=== PATIENT | female | born 1975 | race African-American/Black ===

== ENCOUNTER 2017-06-03 21:41 | Emergency (ER) | payer MEDICAID, OTHER ==
[~2017-06-03] VITALS: Ht 149.9 cm; Wt 79.0 kg
[~2017-06-03 21:41] MED LIST: TYLENOL #3
[2017-06-03] MEDS ORDERED: METHYLPREDNISOLONE SOD SUCC 125 MG/2 ML VIAL IM STA (22:22)
[2017-06-03] MEDS ORDERED: ALBUTEROL (0.083%) 2.5MG/3ML NEB HHN STA ×2 (22:22→23:33)
[2017-06-03] MEDS ORDERED: IPRATROPIUM BROMIDE (0.02%) 0.5MG/2.5ML NEB HHN STA ×2 (22:22→23:33)
[2017-06-04 00:14] VITALS: BP 122/71
[2017-06-04] MEDS ORDERED: IPRATROPIUM/ALBUTEROL 0.5-3(2.5)MG/3ML NEB ONE (00:18)
[2017-06-04] MEDS ORDERED: GUAIFENESIN 200MG/10ML SUGAR FREE UDC PO ONE (01:30)
[2017-06-04] MEDS ORDERED: GUAIFENESIN 200MG/10ML SUGAR FREE UDC PO NR (01:45)
== END 2017-06-04 01:55 | disposition home or self-care (01) ==
LOC: ER 21:41
DX: J45.901 Unspecified asthma with (acute) exacerbation (principal); J06.9 Acute upper respiratory infection, unspecified; F12.10 Cannabis abuse, uncomplicated
CPT/HCPCS: 71045; 87070; 87430; 87804; 94640; 96372; 99285; J2930; J7611; J7620; Z7610; 93005

== ENCOUNTER 2018-11-30 09:41 | Inpatient (IN) | payer OTHER ==
[~2018-11-30] VITALS: Ht 149.9 cm; Wt 93.4 kg
[2018-11-30] MEDS ORDERED: IPRATROPIUM BROMIDE (0.02%) 0.5MG/2.5ML NEB HHN STA (10:09)
[2018-11-30] MEDS ORDERED: MAGNESIUM 2 G PREMIX 50 ML IV STA (10:09)
[2018-11-30] MEDS ORDERED: ALBUTEROL (0.083%) 2.5MG/3ML NEB HHN STA (10:09)
[2018-11-30] MEDS ORDERED: SODIUM CHLORIDE 0.9% 1,000 ML IV ONE (10:09)
[2018-11-30] MEDS ORDERED: METHYLPREDNISOLONE SOD SUCC 125 MG/2 ML VIAL IV STA (10:09)
[2018-11-30] MEDS ORDERED: IPRATROPIUM/ALBUTEROL 0.5-3(2.5)MG/3ML NEB ONE (10:15)
[2018-11-30] MEDS ORDERED: LORAZEPAM 2MG/ML CPJ IV ONE (10:45)
[2018-11-30 10:46] LABS: BASOPHILS % 0.7 % (0.0-2.0); EOSINOPHILS % 1.9 % (0.0-5.0); HEMATOCRIT. 40.2 % (36.0-48.0); HEMOGLOBIN. 13.5 g/dL (12.0-16.0); LYMPHOCYTES % 31.3 % (20.0-50.0); MEAN CORPUSCULAR HEMOGLOBIN 30.8 pg (28.0-32.0); MEAN CORPUSCULAR VOLUME 91.5 fL (81.0-99.0); MONOCYTES % 14.2 % (2.0-8.0); NEUTROPHILS % 51.9 % (40.0-76.0); PLATELET 303 x1000/uL (130-400); RED BLOOD CELL COUNT 4.39 mill/uL (4.2-5.4); RED CELL DISTRIBUTION WIDTH 14.4 % (11.6-14.6)
[2018-11-30 10:52] LABS: CHLORIDE 109 mEq/L (98-107)
[2018-11-30 10:58] LABS: HCG SCREEN NEGATIVE
[2018-11-30] MEDS ORDERED: CLONIDINE 0.1MG TABLET PO PRN (11:15)
[2018-11-30] MEDS ORDERED: ACETAMINOPHEN 325MG TABLET PO PRN (11:15)
[2018-11-30] MEDS ORDERED: ONDANSETRON HCL 4MG/2ML INJ IV PRN (11:15)
[2018-11-30] MEDS ORDERED: MAGNESIUM/ALUMINUM HYDROXIDE/SIMETHICONE 30ML UDC PO PRN (11:15)
[2018-11-30] MEDS ORDERED: DIPHENHYDRAMINE 50MG/ML VIAL IV PRN (11:15)
[2018-11-30] MEDS ORDERED: IPRATROPIUM/ALBUTEROL 0.5-3(2.5)MG/3ML NEB HHN PRN (11:15)
[2018-11-30] MEDS ORDERED: DOCUSATE SODIUM 100MG CAPSULE PO PRN (11:15)
[2018-11-30 12:08] LABS: PHOSPHORUS 3.1 mg/dL (2.5-4.9)
[2018-11-30 13:00] VITALS: BP 141/77
[2018-11-30] MEDS ORDERED: PRED-276 MT (13:33)
[2018-11-30] MEDS ORDERED: ALBU05 NEB (13:33)
[2018-11-30] MEDS: GUAIFENESIN 200MG/10ML SUGAR FREE UDC PO PRN (14:19)
[2018-11-30] MEDS: ENOXAPARIN 40MG/0.4ML SYR SUBCUT SCH (14:19)
[2018-11-30] MEDS: HYDROCODONE/ACETAMINOPHEN 5/325MG TABLET PO PRN (14:21)
[2018-11-30 15:30] VITALS: BP 127/77
[2018-11-30] MEDS: METHYLPREDNISOLONE SOD SUCC 40 MG/ML VIAL IV SCH ×2 (15:59→22:15)
[2018-11-30] MEDS: LORATADINE 10MG TABLET PO SCH (16:01)
[2018-11-30] MEDS: MONTELUKAST SODIUM 10MG TABLET PO SCH (18:30)
[2018-11-30 20:00] VITALS: BP 121/61
[2018-11-30] MEDS: MORPHINE SULFATE 2 MG/ML CPJ (NOT FOR IM USE) IV PRN (20:04)
[2018-11-30] MEDS: GUAIFENESIN 600MG ER TABLET PO SCH (22:16)
[2018-11-30] MEDS: FAMOTIDINE 20MG/2ML VIAL IV SCH (22:16)
[2018-12-01] VITALS: BP 118/64
[2018-12-01] MEDS: IPRATROPIUM/ALBUTEROL 0.5-3(2.5)MG/3ML NEB HHN SCH ×4 (01:06→21:34)
[2018-12-01 04:00] VITALS: BP 122/59
[2018-12-01] MEDS: METHYLPREDNISOLONE SOD SUCC 40 MG/ML VIAL IV SCH ×3 (05:27→21:03)
[2018-12-01 08:30] VITALS: BP 117/71
[2018-12-01] MEDS: ENOXAPARIN 40MG/0.4ML SYR SUBCUT SCH ×2 (09:00→10:16)
[2018-12-01] MEDS: FAMOTIDINE 20MG/2ML VIAL IV SCH ×3 (09:00→21:03)
[2018-12-01] MEDS: LORATADINE 10MG TABLET PO SCH (09:19)
[2018-12-01] MEDS: GUAIFENESIN 600MG ER TABLET PO SCH ×2 (09:19→21:03)
[2018-12-01] MEDS: MORPHINE SULFATE 2 MG/ML CPJ (NOT FOR IM USE) IV PRN ×2 (09:20→22:39)
[2018-12-01 11:21] LABS: HEMATOCRIT. 42.8 % (36.0-48.0); HEMOGLOBIN. 14.1 g/dL (12.0-16.0); MEAN CORPUSCULAR HEMOGLOBIN 30.4 pg (28.0-32.0); MEAN CORPUSCULAR VOLUME 92.6 fL (81.0-99.0); PLATELET 325 x1000/uL (130-400); RED BLOOD CELL COUNT 4.63 mill/uL (4.2-5.4); RED CELL DISTRIBUTION WIDTH 14.6 % (11.6-14.6)
[2018-12-01 11:36] LABS: HDL CHOLESTEROL 69 mg/dL (40-59)
[2018-12-01 11:38] LABS: LDL CHOLESTEROL 107 mg/dL (5-100)
[2018-12-01 12:07] VITALS: BP 137/70
[2018-12-01] MEDS: HYDROCODONE/ACETAMINOPHEN 5/325MG TABLET PO PRN (12:31)
[2018-12-01 13:06] LABS: PLATELET ESTIMATE NORMAL
[2018-12-01] MEDS ORDERED: IPRATROPIUM/ALBUTEROL 0.5-3(2.5)MG/3ML NEB HHN SCH (14:00)
[2018-12-01 16:02] VITALS: BP 125/76
[2018-12-01] MEDS: MONTELUKAST SODIUM 10MG TABLET PO SCH (16:50)
[2018-12-01] MEDS: GUAIFENESIN 200MG/10ML SUGAR FREE UDC PO PRN (17:16)
[2018-12-01 20:00] VITALS: BP 113/71
[2018-12-02] VITALS: BP 128/76
[2018-12-02] MEDS: IPRATROPIUM/ALBUTEROL 0.5-3(2.5)MG/3ML NEB HHN SCH ×4 (01:17→12:49)
[2018-12-02] MEDS: HYDROCODONE/ACETAMINOPHEN 5/325MG TABLET PO PRN ×2 (02:29→09:31)
[2018-12-02 04:00] VITALS: BP 100/52
[2018-12-02] MEDS: METHYLPREDNISOLONE SOD SUCC 40 MG/ML VIAL IV SCH ×2 (06:13→14:00)
[2018-12-02 07:24] LABS: CHLORIDE 107 mEq/L (98-107)
[2018-12-02 07:29] LABS: HEMATOCRIT. 38.3 % (36.0-48.0); HEMOGLOBIN. 12.8 g/dL (12.0-16.0); MEAN CORPUSCULAR HEMOGLOBIN 30.6 pg (28.0-32.0); MEAN CORPUSCULAR VOLUME 91.7 fL (81.0-99.0); MEAN PLATELET VOLUME 7.9 fl (7.4-10.4); PLATELET 309 x1000/uL (130-400); RED BLOOD CELL COUNT 4.18 mill/uL (4.2-5.4); RED CELL DISTRIBUTION WIDTH 14.4 % (11.6-14.6)
[2018-12-02 08:00] VITALS: BP 121/82
[2018-12-02] MEDS ORDERED: ENOXAPARIN 30MG/0.3ML SYR SUBCUT SCH (09:00)
[2018-12-02] MEDS: FAMOTIDINE 20MG/2ML VIAL IV SCH (09:30)
[2018-12-02] MEDS: LORATADINE 10MG TABLET PO SCH (09:30)
[2018-12-02] MEDS: GUAIFENESIN 600MG ER TABLET PO SCH (09:30)
[2018-12-02 12:00] VITALS: BP 116/84
[2018-12-02] MEDS: MORPHINE SULFATE 2 MG/ML CPJ (NOT FOR IM USE) IV PRN (13:02)
[2018-12-02 14:03] LABS: PLATELET ESTIMATE NORMAL
[2018-12-02] MEDS ORDERED: MONT10TA21 PO (14:38)
[2018-12-02] MEDS ORDERED: FAMO-135 MT (14:38)
[2018-12-02] MEDS ORDERED: MOME13HF2 INH (14:38)
[2018-12-02] MEDS ORDERED: CLAR10 PO (14:38)
[2018-12-02] MEDS ORDERED: PRED10TA MT (14:38)
[2018-12-02 15:51] VITALS: BP 116/84
== END 2018-12-02 16:05 | disposition home or self-care (01) | DRG 133 ==
LOC: ER 09:41 → 6WST 10:31 → EDBEDREQ 10:50 → ENRESERV 11:08
PROVIDERS: ADMIT Internal Medicine; ATTEND Internal Medicine
DX: J96.00 Acute respiratory failure, unspecified whether with hypoxia or hypercapnia (principal); J45.901 Unspecified asthma with (acute) exacerbation; D25.9 Leiomyoma of uterus, unspecified; D72.829 Elevated white blood cell count, unspecified; T38.0X5A Adverse effect of glucocorticoids and synthetic analogues, initial encounter; Y92.89 Other specified places as the place of occurrence of the external cause
CPT/HCPCS: 36415; 71045; 80048; 80061; 83735; 83880; 84100; 84443; 84484; 84703; 87804; 93005; 93970; 94640; 96365; 99291; J1200; J1650; J2270; J2920; J2930; J3475; J3490; J7030; J7620